=== PATIENT | female | born 1990 | race Caucasian/White ===

== ENCOUNTER → 2017-01-10 | Outpatient (REF) ==
[~2017-01-10] MED LIST: COLACE 100100 MG/CAP PO; METHERGINE0.2 MG/TAB PO; MOTRIN 600600 MG/TAB PO; PERCOCET 325 MG1 TA2 PO; PRENATAL1 TA3 PO
== END ==
LOC: WSOH 19:00
DX: Z02.89 Encounter for other administrative examinations (principal)

== ENCOUNTER 2019-06-22 06:49 | Inpatient (IN) | payer OTHER ==
[2019-06-22] VITALS (34 sets, daily range): BP systolic 109–138; BP diastolic 55–81; PULSE 62–93; TEMP 97.3–98.8
[~2019-06-22] VITALS: Ht 172.7 cm; Wt 97.3 kg
--- NOTE | 2019-06-22 07:25 | NUR ---
Patient ambulatory onto unit with at side for scheduled induction of labor. Patient oriented to room and changed into gown. Plan of care discussed. , 39.1wks gestation. GBS-. Denies complications. Patient reports good movement and irregular contractions. Denies leaking of fluid or vaginal bleeding. EFMs on. VS taken. IV started to left hand by this RN, labs drawn, LR infusing. Assessment completed. Consents signed. SVE 2-3//-2 by this RN. Pitocin started per protocol. Plan of care again discussed. Questions answered. Call light within reach.
[2019-06-22] MEDS ORDERED: PRENATAL VITAMI1 TA3 PO (07:49)
[2019-06-22 08:28] LABS: BASO % 0.2 % (0.0-2.0); EOS # 0.1 (0.0-0.7); EOS % 0.6 % (0-4.0); GRAN # 4.9 (1.4-6.5); GRAN % 54.1 % (42.2-75.2); HEMATOCRIT 39.2 % (37.0-47.0); HEMOGLOBIN 12.9 g/dl (12.5-16.0); LYMPH # 3.3 (1.2-3.4); LYMPH % 36.2 % (20.0-51.0); MEAN CELL VOLUME 87 fl (80.0-100.0); MEAN CORPUSCULAR HEMOGLOBIN 29 pg (27.0-31.0); MEAN CORPUSCULAR HGB CONC 33 g/dl (33.0-37.0); MEAN PLATELET VOLUME 10.1 fl (7.4-10.4); MONO # 0.7 (0.1-0.6); PLATELET COUNT 227 K/mm3 (130-400); RED BLOOD COUNT 4.49 M/mm3 (4.10-5.30); REDCELL DISTRIBUTION WIDTH-CV 13.7 % (11.5-14.5)
--- NOTE | 2019-06-22 08:55 | NUR ---
to bedside. Plan of care discussed with patient and . Questions answered. AROM at 0856, large amount of clear fluid noted with exam. SVE /-2 per provider. Patient denies needs at this time. Call light within reach.
--- NOTE | 2019-06-22 09:30 | NUR ---
Patient breathing through contractions. Pericare performed. Patient aware [employer] OPERATOR is in OR for section, states she would like epidural when available. supportive at bedside. Call light within reach.
--- NOTE | 2019-06-22 10:25 | NUR ---
1012: Gregoria ELISE at bedside for epidural placement. Patient sitting at edge of bed. 1018: Lidocaine. 1019: Single Shot given by Gregoria ELISE, no adverse reactions noted. 1020: Epidural Catheter placed. 1025: Patient repositioned to left tilt. Plan of care discussed. Questions answered. Call light within reach.
--- NOTE | 2019-06-22 10:40 | NUR ---
Patient pushes epidural button, still uncomfortable with contractions. SVE 4-5/80/-2. Will continue to monitor.
--- NOTE | 2019-06-22 10:50 | NUR ---
Patient denies pain with contractions, only feeling pressure. Castañeda catheter placed at this time. Patient repositioned to right lateral with peanut ball in place. Encouraged to rest. Call light within reach.
--- NOTE | 2019-06-22 12:15 | NUR ---
Patient comfortable with epidural in place. SVE /-2. Patient repositioned to left tilt with peanut ball in place, head of bed elevated. Instructed to notify RN with rectal pressure or urge to push. Encouraged to continue resting. and mother at bedside. Call light within reach.
--- NOTE | 2019-06-22 13:00 | NUR ---
to bedside. Plan of care discussed. Questions answered. Patient denies needs at this time. Call light within reach.
--- NOTE | 2019-06-22 13:20 | NUR ---
Patient reports feeling more pressure with contractions. SVE 7-8/90/-1. Patient repositioned to right tilt with peanut ball in place, head of bed elevated. Instructed to notify RN with rectal pressure or urge to push. and mother remain at bedside. Call light within reach.
--- NOTE | 2019-06-22 14:25 | NUR ---
1340: Patient calls out reporting increased rectal pressure. SVE AL/+1. 1344: notified of SVE, requested on unit. 1353: at bedside. SVE Complete/+1. Garry pate. 1406: Abdoul LORENZANA requested at bedside as nursery RN. 1411: Spontaneous vaginal delivery of viable female infant over intact perineum assisted by . care assumed by Abdoul LORENZANA at this time. Pitocin off. 1415: Spontaneous delivery of placenta assisted by . Fundus firm, lochia WNL. Pitocin infusing at 333ml/hr. 1417: Methergine 0.2mg IM given per order. Red steve catheter by . Fundus firm, lochia WNL. 1425: Recovery started. Pericare performed. Moderate amount of clots noted with fundal massage. Will continue to monitor.
--- NOTE | 2019-06-22 16:30 | NUR ---
Patient unable to lift right leg off of bed. Straight catheter used to drain bladder. Fundus firm, lochia WNL. Pericare performed. Ice pack in place. Denies pain or needs at this time. Call light within reach.
--- NOTE | 2019-06-22 18:30 | NUR ---
Report to Marielena LORENZANA to assume care of patient at this time.
--- NOTE | 2019-06-22 18:50 | NUR ---
ST CATH 600CC VERY. SWOLLEN LABIA. LARGE ICE PACK TO AREA.UNABLE TO MOVE RT LEG. REMAINS IN LR 3 WITH BABY AND SPOUSE AFTER FAMILY VISITED.
[2019-06-23 04:00] VITALS: BP 111/54; PULSE 67; TEMP 98.6
[2019-06-23] MEDS ORDERED: PERCOCET 325 MG1 TA2 PO (08:02)
[2019-06-23] MEDS ORDERED: MOTRIN 800800 MG/TAB PO (08:02)
[2019-06-23 09:15] VITALS: BP 117/56; PULSE 80; TEMP 97.1
--- NOTE | 2019-06-23 09:30 | NUR ---
Rests in bed, alert. Request pain medication. Percocet 5/325 mg two given per request and as ordered.
--- NOTE | 2019-06-23 12:38 | NUR ---
Initial visit; Patient thanked [employer] for offering congratulations and God's blessings for the of her son. [employer] Painter thanked her for choosing our hospital.
[2019-06-23 14:00] VITALS: BP 142/78; PULSE 85; TEMP 97.6
--- NOTE | 2019-06-23 14:00 | NUR ---
Rests in bed, alert. Percocet 5/325 mg two given, ibuprofen 800 mg given per request.
[2019-06-23 15:45] VITALS: BP 132/76; PULSE 77; TEMP 97.3
--- NOTE | 2019-06-23 17:30 | NUR ---
Discharge instructions given, verbalizes understanding.
== END 2019-06-23 18:00 | disposition home or self-care (01) | DRG 807 ==
LOC: LDR 06:49 → OB 07:22
PROVIDERS: ADMIT Obstetrics & Gynecology
PROC: 10E0XZZ Delivery of Products of Conception, External Approach (ICD-10-PCS; principal; 2019-06-22)
PROC: 10907ZC Drainage of Amniotic Fluid, Therapeutic from Products of Conception, Via Natural or Artificial Opening (ICD-10-PCS; 2019-06-22)
DX: O69.81X0 Labor and delivery complicated by cord around neck, without compression, not applicable or unspecified (principal); Z37.0 Single live birth; Z23 Encounter for immunization; Z3A.39 39 weeks gestation of pregnancy
CPT/HCPCS: J2210; J2590; J2791; J2795; J7120

== ENCOUNTER 2021-12-30 05:34 | Emergency (ER) | payer OTHER ==
[~2021-12-30] VITALS: Ht 175.3 cm; Wt 77.3 kg
[~2021-12-30 05:34] MED LIST changes: +MOTRIN 800800 MG/TAB PO; +PRENATAL VITAMI1 TA3 PO
[2021-12-30 05:58] LABS: BASO # 0.1 K/mm3 (0.0-0.2); BASO % 0.7 % (0.0-2.0); EOS # 0.2 K/mm3 (0.0-0.7); EOS % 2.1 % (0.0-4.0); GRAN # 3.8 K/mm3 (1.4-6.5); GRAN % 43.7 % (42.2-75.2); HEMATOCRIT 42.1 % (37.0-47.0); LYMPH # 3.8 K/mm3 (1.2-3.4); LYMPH % 43.5 % (20.0-51.0); MEAN CELL VOLUME 86 fl (80.0-100.0); MEAN CORPUSCULAR HEMOGLOBIN 29 pg (27-31); MEAN CORPUSCULAR HGB CONC 33 g/dl (33.0-37.0); MEAN PLATELET VOLUME 9.8 fl (7.4-10.4); MONO # 0.9 K/mm3 (0.1-0.6); MONO % 9.7 % (1.7-9.3); PLATELET COUNT 349 K/mm3 (130-400); RED BLOOD COUNT 4.88 M/mm3 (4.10-5.30); REDCELL DISTRIBUTION WIDTH-CV 12.3 % (11.5-14.5)
[2021-12-30 06:15] LABS: ALBUMIN 3.8 gm/dL (3.5-5.0); BILIRUBIN,TOTAL 0.5 mg/dL (0.2-1.2); CALCIUM 9.5 mg/dL (8.4-10.2); CREATININE, serum 0.97 mg/dL (0.57-1.11); POTASSIUM 3.6 mmol/L (3.5-4.5)
[2021-12-30 06:36] VITALS: TEMP 96.3
[2021-12-30] MEDS ORDERED: PERCOCET 325 MG1 TA2 PO (07:07)
[2021-12-30] MEDS ORDERED: ZOFRAN ODT4 MG PO (07:07)
[2021-12-30 07:54] VITALS: BP 126/72; PULSE 58
== END 2021-12-30 08:02 | disposition home or self-care (01) ==
LOC: COL.ER 05:34
PROVIDERS: Personal Emergency Response Attendant
DX: K80.50 Calculus of bile duct without cholangitis or cholecystitis without obstruction (principal)
CPT/HCPCS: J2270; J2405; J7030; Q9967

== ENCOUNTER 2022-01-01 06:35 | Day surgery (SDC) | payer OTHER ==
[~2022-01-01] VITALS: Ht 172.7 cm; Wt 79.0 kg
[~2022-01-01 06:35] MED LIST changes: +ZOFRAN ODT4 MG PO
[2022-01-01] MEDS ORDERED: ESTARYLLA 35 MC1 TAB PO (07:12)
[2022-01-01 07:31] VITALS: BP 140/90; PULSE 77; TEMP 97.6
[2022-01-01] MEDS ORDERED: NORCO 325 MG-51 TAB PO (09:59)
[2022-01-01 10:30] VITALS: BP 138/64; PULSE 64; TEMP 97.1
[2022-01-01 10:45] VITALS: BP 113/62; PULSE 49
[2022-01-01 11:00] VITALS: BP 123/82; PULSE 51
[2022-01-01 11:15] VITALS: BP 127/67
--- NOTE | 2022-01-01 11:57 | NUR ---
1030: Patient arrived back into bay 6 from PACU. Patient is drowsy but arousable. Vital signs stable on room air. Report received from HARRIETT Parada. Patient requesting water. Patient denies pain and nausea. Incisions x3, covered with bandaids, clean, dry and intact. and daughter brought to bedside. Call light left within reach. 1045: Patient vitally stable. Tolerating water at this time. Patient requesting to rest at this time. 1100: Patient tolerating water, requesting blueberry muffin at this time. 1115: Patient tolerated food and drink. PRN pain medication given per JUL. 1120: Patient up to restroom via stand by assit. Able to void successfully. Patient to get dressed at this time. 1135: Meets discharge criteria. Went through discharge instructions with patient and . Questions answered. IV removed without complications and coband applied. Escorted to patient entrance via wheelchair. Patient got into personal vehicle unassisted and left in the care of her , Eladio.
== END 2022-01-01 11:50 | disposition home or self-care (01) ==
LOC: SDCO 06:35
DX: K80.10 Calculus of gallbladder with chronic cholecystitis without obstruction (principal)
CPT/HCPCS: J0690; J1100; J1170; J1885; J2405; J2704; J2710; J3010; J7120

== ENCOUNTER 2022-10-11 17:30 | Outpatient (CLI) | payer OTHER ==
[~2022-10-11] VITALS: Ht 172.7 cm; Wt 102.7 kg
[~2022-10-11 17:30] MED LIST changes: +ESTARYLLA 35 MC1 TAB PO; +NORCO 325 MG-51 TAB PO
[2022-10-11] MEDS ORDERED: TOPROL XL 50MG50 MG PO (17:50)
[2022-10-11] MEDS ORDERED: PRENATAL TABLET PO (17:50)
[2022-10-11 18:00] VITALS: BP 122/69; PULSE 96; TEMP 97.4
--- NOTE | 2022-10-11 18:00 | NUR ---
1739- Pt arrives on unit ambulatory with complaints of irregular UCs for the past couple of days, increasing in intensity. Pt very uncomfortable. EFM and TOCO on and tracing well. VSS. Assessments completed. Pt denies VB, LOF. +FM.
[2022-10-11 18:30] VITALS: PULSE 86
--- NOTE | 2022-10-11 19:10 | NUR ---
SVE 3-4/60/-3, posterior in position, membranes intact. Denny every 1-3 minutes on toco but patient states she feels constantly crampy in between the big contractions. RN in room for about 7 minutes observing and does not react to all contractions. Pt given the option to discharge home to continue to labor and come back when contractions are stronger or to observe for additional hour. Pt ok with plan to discharge home.
[2022-10-11 19:15] VITALS: BP 136/61; PULSE 80
--- NOTE | 2022-10-11 19:15 | NUR ---
Discharge instructions reviewed and signed. Return precautions explained, pt verbalized understanding. Pt seen ambulating off unit in stable condition.
[2022-10-12] MEDS ORDERED: BENADRYL25 M2 PO (09:52)
[2022-10-12] MEDS ORDERED: TYLENOL 500MG500 MG PO (09:52)
[2022-10-14] MEDS ORDERED: MOTRIN 600600 MG/TAB PO (09:43)
[2022-10-14] MEDS ORDERED: PERCOCET 325 MG1 TA2 PO (09:44)
== END 2022-10-11 19:20 | disposition home or self-care (01) ==
LOC: LDRO 17:30
DX: O26.893 Other specified pregnancy related conditions, third trimester (principal); E75.5 Other lipid storage disorders; Z3A.38 38 weeks gestation of pregnancy